=== PATIENT | female | born 1970 | race Caucasian/White ===

== ENCOUNTER → 2024-05-24 | Outpatient (CLI) | payer BC, SELFPAY ==
--- NOTE | 2024-05-24 10:45 | XR_ITS ---
Examination: Screening digital mammography, bilateral Computer aided detection 3-D breast Tomosynthesis, bilateral Date and time of exam: May 24, 2024 at 1020 hours Compared to mammograms dating to June 10, 2015 Indication: Screening Technique: Nonmagnified MLO, CC views of the breasts to been obtained, reconstructed from 3-D Tomosynthesis images. R2 computer aided detection program utilized for evaluation of suspicious masses and/or abnormal calcifications. 3-D Tomosynthesis images obtained. Findings: The breasts are heterogeneously dense, which may obscure small masses Benign calcifications. No interval suspicious masses Impression: BI-RADS category II: Benign Findings. Recommend 1 year follow-up mammogram.
== END | disposition home or self-care (01) ==
PROVIDERS: PCP Registered Nurse
DX: Z12.31 Encounter for screening mammogram for malignant neoplasm of breast (principal); R92.323 Mammographic fibroglandular density, bilateral breasts; R92.1 Mammographic calcification found on diagnostic imaging of breast
CPT/HCPCS: 77063; 77067

== ENCOUNTER → 2024-06-10 | Outpatient (CLI) | payer BC, SELFPAY ==
--- NOTE | 2024-06-10 13:50 | XR_ITS ---
Examination: Bone densitometry Date and time of exam:June 10, 2024 1413 hours INDICATIONS: Menopause age 49 Indication 4 months, personal history osteopenia Technique: Lumbar spine and hip total bone mineralization values of an calculated. Peak reference and age match control results have been displayed. Findings: Lumbar spine total bone mineralization is0.912 gm/cm2. This is 1.2 standard deviations below peak reference. This is 0.1 standard deviations above age-matched controls. Hip total bone mineralization is .871 gm/cm2 This is 0.6 standard deviations below peak reference. This is 6.7 standard deviations below age-matched controls Impression: There is osteopenia based on lumbar spine measurements. There is osteopenia based on hip measurements Lumbar mineralization is increased 2.5% compared with December 23, 2016 Hip mineralization is decreased 6.7% compared to December 23, 2016
== END | disposition home or self-care (01) ==
LOC: CDIM 13:39
PROVIDERS: PCP Registered Nurse; Referring Provider Nurse Practitioner Family; Visit Provider Nurse Practitioner Family
DX: Z13.820 Encounter for screening for osteoporosis (principal); M85.89 Other specified disorders of bone density and structure, multiple sites
CPT/HCPCS: 77080